=== PATIENT | male | born 1950 | race Caucasian/White ===

== ENCOUNTER 2022-11-25 15:26 | Emergency (ER) | payer MEDICARE ==
[2022-11-25 16:25] VITALS: O2SAT 95
[2022-11-25] MEDS ORDERED: KETOROLAC 60 MG/2 ML VIAL IM STA (16:38)
--- NOTE | 2022-11-25 16:39 | ED Physician Documentation ---
PD HPI BACK PAIN - Stated complaint Stated Complaint: BACK PX - Chief complaint Chief Complaint: Back Pain - History obtained from History obtained from: Patient - Additional information Additional information: 72-year-old gentleman with history of MS and degenerative disc disease in the back presents with severe back pain starting gradually on the right side since yesterday. Much worse with bending, twisting, laughing. No radiation of the pain to the buttocks or legs. No new weakness, numbness, or tingling in the legs or around the groin. No incontinence of bowel or bladder. No fevers. He has not tried anything for it. PD PAST MEDICAL HISTORY - Past Medical History Past Medical History: Yes Neuro: Multiple sclerosis - Present Medications Home Medications: Ambulatory Orders Medication Instructions Recorded Confirmed HYDROcod/ACETAM 5/325 [[place] 5/325] 1 - 2 tab PO Q6H PRN #15 tablet 11/25/22 - Allergies Allergies/Adverse Reactions: Allergies Allergy/AdvReac Type Severity Reaction Status Date / Time glatiramer (copolymer 1) Allergy Hives Verified 11/25/22 16:18 [From Copaxone] - Social History Does the pt smoke?: No Smoking Status: Never smoker PD ED PE NORMAL - Vitals Vital signs reviewed: Yes - General General: Alert and oriented X 3, Other (Comfortable at rest but winces with motion or with laughing) - Cardiac Cardiac: RRR, No murmur - Respiratory Respiratory: No respiratory distress, Clear bilaterally - Abdomen Abdomen: Soft, Non tender - Back Back: Other (Muscular tenderness of the left low back. No midline spinal tenderness) - Extremities Extremities: Other (The patient has equal and normal Achilles and patellar reflexes bilaterally. Normal sensation in all areas of the legs. Patient denies saddle anesthesia. Normal strength in flexion-extension at the ankles, knees, and flexion of the hips.) - Neuro Neuro: Alert and oriented X 3, Normal speech Results - Vitals Vitals: Vital Signs - 24 hr 11/25/22 16:15 Temperature 36.3 C L Heart Rate 71 Respiratory 20 Rate Blood Pressure 156/96 H O2 Saturation 95 Oxygen O2 Source Room air - Rads (name of study) CTAP showing nephrolith in the left kidney, and chronic L1 compression fracture which she was already aware of. Relevant Findings:: Final report received, EMP independent interpretation of test PD Medical Decision Making - ED course ED course: Seemingly muscular but given his age seems reasonable to image with CT to rule out AAA, kidney stone, metastatic disease.He received 60 mg of intramuscular Toradol and 2 mg of intramuscular Dilaudid. Went over to CT showing no acute findings. After the above medications he was pain-free but feeling pretty loopy. Care to my partner at 7 PM shift change to follow-up on urinalysis results and four Vicodin to go. Departure - Departure Clinical Impression: Low back pain Condition: Good Record reviewed to determine appropriate education?: Yes Instructions: ED Spasm Back No Trauma Prescriptions: HYDROcod/ACETAM 5/325 [[place] 5/325] 1 - 2 tab PO Q6H PRN #15 tablet PRN Reason: Pain Comments: I sent your prescription electronically to [facility] in [place]. Call your doctor to arrange a follow-up appointment, make the next available appointment. In the interim, return anytime if worse or if new symptoms develop. I am prescribing a short course of narcotic pain medication for you. These are potentially dangerous and addictive medications that should be used carefully. These medications may constipate you. Take an qzij-aor-btsvtdi stool softener (docusate) twice daily with plenty of water while taking these medications. If you go 24 hours without a bowel movement, take zbat-dgu-cxofyhg miralax, per package instructions. Do not drink or drive while taking these medications. If you received narcotic or sedating medications while in the emergency department, do not drive for 24 hours. Store this medication in a safe, secure place and out of reach of children. It is a violation of federal law to give or sell this medication to another person or to use in a manner other than prescribed. The ED will not refill narcotic prescriptions, including prescriptions lost or stolen. To dispose of unwanted medications: 1. [facility] provides a drop box for medication in pill form only (no liquids) 8:00 am to 4:30 p.m. Saturday-Saturday in the lobby of the [facility] [place], [address] [place] [address]. Empty pills into ziplock bag before disposal. Call [phone] for information. 2.[employer] is a free service available to all [facility] residents. Go to [email or web address] Note that many narcotic pain relievers also contain Tylenol/acetaminophen. Please ensure that your total dose of acetaminophen from all sources does not exceed 3 g (3000 mg) per day.
[2022-11-25] MEDS ORDERED: HYDROmorphone 2 MG/ML VIAL IM STA (16:40)
--- NOTE | 2022-11-25 18:40 | CT Report ---
PROCEDURE: ABDOMEN/PELVIS WO INDICATIONS: back pain TECHNIQUE: A CT scan of the abdomen and pelvis was performed without the use of intravenous contrast. Images we re recorded and evaluated at appropriate window settings. Reformats: coronal and sagittal. For radiat ion dose reduction, the following was used: automated exposure control, adjustment of mA and/or kV ac cording to patient size. COMPARISON: None. FINDINGS: Image quality: Excellent. Lung bases and heart: Dependent atelectasis. Liver: No solid mass. Gallbladder and biliary tree: No radiopaque stones or wall thickening. No biliary dilation. Spleen: No splenomegaly. Pancreas: No pancreatic ductal dilation. Adrenals: No adrenal nodule. Kidneys and ureters: Punctate 1 mm nonobstructing stone in the interpolar region of the left kidney. No hydronephrosis. Senescent perinephric stranding. Bowel and peritoneum: No bowel distension. No pathologic free fluid. Small hiatal hernia. Lymph nodes: No central or retroperitoneal adenopathy. Vessels: No infrarenal aortic aneurysm. Aortobiiliac atherosclerotic calcifications. PELVIS Reproductive organs: Pelvic Phleboliths. Central prostatic calcifications. Bladder: No wall thickness, accounting for underdistention. Pelvic lymph nodes: No pelvic adenopathy by size criteria. Bones: There is chronic appearing compression deformity at the inferior endplate of L1. Moderate mult ilevel degenerative changes. IMPRESSION: No acute findings in the abdomen or pelvis to explain patient's symptoms. Nonobstructing 1 mm calculus in the interpolar region of left kidney. No hydronephrosis bilaterally. Chronic appearing compression deformity involving the inferior endplate of L1 vertebral body. Reviewed by: Gregoria Toscano MD on 11/25/2022 6:39 PM PDT Approved by: Gregoria Toscano MD on 11/25/2022 6:39 PM PDT Station ID: [id number]
[2022-11-25] MEDS ORDERED: HYDROcod/ACET 5/325 Prepack 4 PO STA (18:51)
[2022-11-25 19:47] LABS: BILIRUBIN,URINE NEGATIVE (NEGATIVE); GLUCOSE, URINE (UA) NEGATIVE (NEGATIVE); KETONES,URINE (UA) NEGATIVE (NEGATIVE); LEUKOCYTE ESTERASE, URINE NEGATIVE (NEGATIVE); NITRITE,URINE NEGATIVE (NEGATIVE); OCCULT BLOOD,URINE NEGATIVE (NEGATIVE); PROTEIN,URINE NEGATIVE (NEGATIVE); UROBILINOGEN,URINE 0.2 (NORMAL) E.U./dL (NORMAL)
[2022-11-25 19:53] LABS: CLARITY,URINE CLEAR (CLEAR)
[2022-11-25 19:59] VITALS: BP 153/87
== END 2022-11-25 19:58 | disposition home or self-care (01) ==
LOC: ED 15:26
DX: M54.50 Low back pain, unspecified (principal)
CPT/HCPCS: 74176; 81003; 96372; 99284; J1170; 81001; 87086

== ENCOUNTER 2022-12-21 06:22 | Outpatient (CLI) | payer MEDICARE | END 2022-12-21 06:23 | disposition EMS.NT | LOC: EMS 06:22 | DX: S90.01XA Contusion of right ankle, initial encounter (principal); W18.49XA Other slipping, tripping and stumbling without falling, initial encounter ==

== ENCOUNTER 2022-12-21 07:48 | Emergency (ER) | payer MEDICARE ==
[2022-12-21 08:07] VITALS: BP 145/90; O2SAT 95
--- NOTE | 2022-12-21 08:32 | XRAY Report ---
PROCEDURE: Ankle 3 View RT INDICATIONS: Trauma TECHNIQUE: 3 views of the ankle were acquired. COMPARISON: None. FINDINGS: Bones: Ankle fracture, as follows: Lateral malleolus / distal fibula: Transsyndesmotic ([place]air B). Medial malleolus: Fracture present. Posterior malleolus: No displaced fracture. Medial clear space: > 6 mm, widened and unstable injury. Lateral clear space: Less than 5 mm, within normal limits. Soft tissues: Tibiotalar effusion present. Ankle swelling present. IMPRESSION: Adair B ankle fracture. Unstable fracture pattern. Recommend orthopedic surgery consultation. Reviewed by: Oj Roberts on 12/21/2022 8:31 AM [facility] Approved by: Oj Roberts on 12/21/2022 8:31 AM [facility] Station ID: [id number]
--- NOTE | 2022-12-21 09:00 | ED Physician Documentation ---
PD HPI LOWER EXT INJURY - Stated complaint Stated Complaint: RT LEG PX - Chief complaint Chief Complaint: Ext Problem - History obtained from History obtained from: Patient - History of Present Illness PD HPI LOW EXT INJURY LOCATION: Right, Ankle Type of injury: Fall (tripped on furniture during night last night, causing twist of ankle and fall. Pain in ankle and unabel to bear weight due to pain. Lay back in bed. Increased swelling this morning.) Where injury occurred: Home Timing - onset: Last night Timing - details: Abrupt onset, Still present Worsened by: Moving, Palpating Associated symptoms: Swelling. No: Weakness, Numbness Similar symptoms before: Has not had sx before Review of Systems Skin: denies: Abrasion (s), Laceration (s) Neurologic: reports: Generalized weakness (due to MS) PD PAST MEDICAL HISTORY - Past Medical History Neuro: Multiple sclerosis (with balance problems in legs and coordination problems in arms. He is concerned about crutches use. ) - Present Medications Home Medications: Ambulatory Orders Medication Instructions Recorded Confirmed HYDROcod/ACETAM 5/325 [[place] 5/325] 1 - 2 tab PO Q6H PRN #15 tablet 11/25/22 HYDROcod/ACETAM 5/325 [[place] 5/325] 1 ea PO Q6H PRN #25 tablet 12/21/22 Meloxicam [Mobic] 7.5 mg PO BID 10 Days #20 tablet 12/21/22 - Allergies Allergies/Adverse Reactions: Allergies Allergy/AdvReac Type Severity Reaction Status Date / Time glatiramer (copolymer 1) Allergy Hives Verified 11/25/22 16:18 [From Copaxone] - Social History Does the pt smoke?: No Smoking Status: Never smoker PD ED PE NORMAL - Vitals Vital signs reviewed: Yes - General General: Alert and oriented X 3, No acute distress, Well developed/nourished - HEENT HEENT: Atraumatic - Derm Derm: Normal color, Warm and dry - Extremities Extremities: Other (swelling and tenderness at ankle diffusely. No gorss deformity. ) - Neuro Neuro: Alert and oriented X 3, No motor deficit, No sensory deficit, Normal speech, Other (normal ulses, color and cap refill in foot/toes. ) Results - Vitals Vitals: Vital Signs - 24 hr 12/21/22 07:55 Temperature 36.3 C L Heart Rate 85 Respiratory 18 Rate Blood Pressure 145/90 H O2 Saturation 95 Oxygen O2 Source Room air - Rads (name of study) right ankle Relevant Findings:: Prelim report reviewed, EMP independent interpretation of test (bimalleolar fracture with mild displacement. No dislocation. ) Procedures - Splint (location) - Minor right ankle Splint applied by: Nurse, Tech Type of splint: Fiberglass, Posterior, Stirrup Other: Patient tolerated well, No complications, Neurovascular intact, Crutches provided PD Medical Decision Making - ED course Complexity details: reviewed results, considered differential, d/w patient ED course: The ankle has swelling and significant tenderness and pain. The x-ray shows bim alleolar fracture. Splinting was applied by nurse and tech and positioning evaluated by me. It appeared in good condition. He was given crutches and shown how to use them. He is concerned about their use due to his MS and some incoordination of arm movement and muscle use. They are going to get a knee scooter for home. He is given the crutches anyway as he will need them for pivoting and transfers. To follow-up with Ortho. Departure - Departure Disposition: 01 Home, Self Care Clinical Impression: Fall from slip, trip, or stumble Qualifiers: Encounter type: initial encounter Qualified Code(s): W01.0XXA - Fall on same level from slipping, tripping and stumbling without subsequent striking against object, initial encounter Bimalleolar ankle fracture Qualifiers: Encounter type: initial encounter Fracture type: closed Laterality: right Qualified Code(s): S82.841A - Displaced bimalleolar fracture of right lower leg, initial encounter for closed fracture Condition: Stable Record reviewed to determine appropriate education?: Yes Instructions: ED Fx Ankle General Follow-Up: Sukhi Lundy MD [Provider Admit Priv/Credential] - [facility] [Provider Group] Prescriptions: Meloxicam [Mobic] 7.5 mg PO BID 10 Days #20 tablet HYDROcod/ACETAM 5/325 [[place] 5/325] 1 ea PO Q6H PRN #25 tablet PRN Reason: Pain Comments: Keep the splint in place. Elevate rest and ice the ankle often to reduce swelling over the next several days. Nonweightbearing for the ankle to reduce motion and pain. This means use of knee scooter, wheelchair or crutches. Light placement of the foot on the ground to help with balance at times is okay but will be more uncomfortable. Call the orthopedic office for a follow-up appointment for likely a about a week's time frame. This will allow time for the swelling to go down and they can reevaluate the fitting of the splint or change to casting and discuss options of surgical treatment versus nonsurgical. Anti-inflammatory regularly. I prescribed meloxicam to use twice daily as it has a longer half-life and does not have to be taken as often. Add Tylenol 500 to 650 mg 4 times daily for pain. Additionally hydrocodone/acetaminophen if needed for worse pain. I sent your prescriptions to [facility]. Return if you feel that the splint is too tight or you develop problems with pallor, numbness or weakness, excessive swelling or such in the foot and toes. My narcotic instructions I am prescribing a short course of narcotic pain medication for you. These are potentially dangerous and addictive medications that should be used carefully. These medications may constipate you. Take an shct-nil-ofpnofx stool softener such as docusate twice daily with plenty of water while taking these medications. If you go 24 hours without a bowel movement, take nhjb-zfn-adlpixg MiraLAX, per package instructions. Do not drink or drive while taking these medications. If you received narcotic or sedating medications while in the emergency department do not drive for 24 hours. Store this medication in a safe, secure place and out of reach of children. It is a violation of federal law to give or sell this medication to another person or to use in a manner other than prescribed. The ED will not refill narcotic prescriptions, including prescriptions lost or stolen. You can dispose of unwanted medications at the [facility]'s office or at several pharmacies such as [facility]. Forms: PCP List Discharge Date/Time: 12/21/22 11:13
[2022-12-21] MEDS ORDERED: KETOROLAC 30 MG/ML VIAL IM STA (09:22)
[2022-12-21] MEDS ORDERED: ACETAMINOPHEN 325 MG TABLET PO STA (09:22)
[2022-12-21] MEDS ORDERED: HYDROcod/ACETAM 5/325 MG TABLET PO STA (10:57)
== END 2022-12-21 11:13 | disposition home or self-care (01) ==
LOC: ED 07:48
DX: S82.841A Displaced bimalleolar fracture of right lower leg, initial encounter for closed fracture (principal); W01.0XXA Fall on same level from slipping, tripping and stumbling without subsequent striking against object, initial encounter
CPT/HCPCS: 29515; 73610; 96372; 99283; A9270